=== PATIENT | male | born 1945 | race Caucasian/White ===

== ENCOUNTER → 2019-04-27 | Outpatient (CLI) | payer OTHER, BC | END | disposition home or self-care (01) | LOC: SJCVCIMAG 09:00 | DX: I25.10 Atherosclerotic heart disease of native coronary artery without angina pectoris (principal); J44.9 Chronic obstructive pulmonary disease, unspecified; I71.4 Abdominal aortic aneurysm, without rupture; I10 Essential (primary) hypertension; E78.5 Hyperlipidemia, unspecified; I73.9 Peripheral vascular disease, unspecified; F17.210 Nicotine dependence, cigarettes, uncomplicated; Z82.49 Family history of ischemic heart disease and other diseases of the circulatory system; Z79.82 Long term (current) use of aspirin ==

== ENCOUNTER → 2019-05-24 | Outpatient (CLI) | payer OTHER, BC ==
[~2019-05-24] VITALS: Ht 175.3 cm; Wt 90.7 kg
[~2019-05-24] MED LIST: ACCUPRIL40 MG PO; ASA81BEC PO; CENTRUM ADULTS1 EACH PO; FISH OIL 1,001000 M2 PO; LIPITOR80 MG PO; NORVASC10 MG PO; TOPROL XL50 MG PO; ZETIA10 MG PO
[2019-05-24 10:24] VITALS: BP 142/83
[2019-05-24 10:57] LABS: HEMATOCRIT 44.5 % (42.0-52.0); HEMOGLOBIN 14.7 gm/dL (14.0-18.0); MCH 30.4 pg (26.0-34.0); MCV 92.1 fL (80.0-100.0); RBC 4.83 mil/uL (4.50-6.00); RDW 13.6 % (10.5-14.5); WBC 8.7 thou/uL (4.0-11.0)
--- NOTE | 2019-05-24 15:06 | CATHLAB ---
[facility] [place] [address] INVASIVE PROCEDURE REPORT Name: DYAN LONG Room #: REG LEEANNA Zamora#: [id number] Admission: 05/24/19 Attend Phys: Alexis Mallory MD Discharge: Date of : 45 Report #: [id number] THIS REPORT FOR: cc: FAM - No family physician/PCP FAM - No family physician/PCP Ger Joiner MD [facility] ~ APPROVED REPORT Study performed: 05/24/2019 11:25:30 Patient Details The patient is a 74 year-old male Event Personnel Ger Joiner Supervisor Plastic Sheets, Klever Veliz RN, Alexis De Los Santosub, Matias Mercado RTR Monitor, Nica Cramer Procedures Performed Art Access - R femoral artery* Left Heart Cath w/or w/o Coronaries [id number] [facility] [place] [address] Initial Mod Sed Same Phys/QHP Gr5y 843430 59319 Mod Sed Same Phys/QHP Ea 201610 Hemostasis w/ Mynx Indication Chest pain Procedure Narrative The Right Groin^ was infiltrated with 1% Lidocaine subcutaneous anesthesia. A PINNACLE 6FR Sheath #[id number] sheath was inserted into the RFA^. Coronary angiography was performed using coronary diagnostic catheters. The right coronary system was accessed and visualized with a JR4 catheter. The left coronary system was accessed and visualized with a JL4 catheter. The left ventricle was accessed and visualized with a PIGTAIL catheter. Closure device was deployed with a 7 Fr MYNX CONTROL 6F/7F L#[id number]. The patient tolerated the procedure well and there were no complications associated with the procedure. Intraoperative Conscious Sedation Sedation start time: 1127 Case end Time: 1140 Fentanyl 50 mcg Versed 2 mg Fluoro Time: 13.31 minutes [facility] [place] [address] INVASIVE PROCEDURE REPORT Name: ETHANDYAN H Room #: [facility]#: [id number] Admission: 05/24/19 Attend Phys: Alexis Mallory, Discharge: Date of : 45 Report #: [id number] Dose: DAP 50186.70 cGycm2 412 mGy Contrast Type and Amount: Visipaque 145 ml Hemodynamics The aortic pressure is 143/73 mmHg with a mean of 97 mmHg. The left ventricular pressure is 159/2 mmHg with a mean of mmHg. The left ventricular end diastolic pressure is 10 mmHg. PCI Technique Lesion Percutaneous coronary intervention was performed on the Popliteal. PCI Technique Lesion 2 Percutaneous Coronary Intervention was performed on the Superficial Femoral. Conclusion #1 normal left ventricular size with subtle inferior basilar hypokinesis EF 55% #2 left main mild distal narrowing of 20-30% calcified giving rise to LAD and circumflex #3 LAD is mildly calcified with eccentric 4050% proximal and diffusely diseased distal vessel large diagonal system mildly disease. Significant collateral filling via the collateral from the distal LAD to the PDA off the occluded RCA. #4 circumflex OM also moderately diseased nondominant but moderate distribution also provides some collateral filling to the inferior wall. #5 dominant right coronary artery occluded well collateralized as noted above Recommendations and plan: Continue aggressive risk factor modification no indication for coronary intervention. See Dr. Mallory's dictation regarding peripheral intervention. <ELECTRONICALLY SIGNED> By: Ger Joiner MD, [facility] 05/24/19 1504 1504 1504 Ger Joiner MD, FACC /INF
== END | disposition home or self-care (01) ==
LOC: CATH 09:25
PROVIDERS: Nuclear Medicine Nuclear Cardiology
DX: R07.9 Chest pain, unspecified (principal); I25.10 Atherosclerotic heart disease of native coronary artery without angina pectoris; I70.212 Atherosclerosis of native arteries of extremities with intermittent claudication, left leg; I70.1 Atherosclerosis of renal artery; I10 Essential (primary) hypertension; I72.4 Aneurysm of artery of lower extremity; E78.5 Hyperlipidemia, unspecified; F17.210 Nicotine dependence, cigarettes, uncomplicated; Z82.49 Family history of ischemic heart disease and other diseases of the circulatory system; Z98.890 Other specified postprocedural states; Z85.72 Personal history of non-Hodgkin lymphomas; Z79.82 Long term (current) use of aspirin; Z79.899 Other long term (current) drug therapy

== ENCOUNTER 2019-06-10 22:58 | Inpatient (IN) | payer OTHER, BC ==
[~2019-06-10] VITALS: Ht 175.3 cm; Wt 92.4 kg
[2019-06-10 23:01] VITALS: BP 135/75
[2019-06-10 23:47] LABS: ABSOLUTE NEUTROPHILS 7.8 thou/uL (1.4-8.2); BASOPHILS 0.4 % (0.0-2.0); EOSINOPHILS 1.5 % (0.0-3.0); HEMATOCRIT 42.2 % (42.0-52.0); LYMPHOCYTES 12.8 % (24.0-44.0); MCH 30.2 pg (26.0-34.0); MCHC 33.1 g/dL (28.0-37.0); MCV 91.2 fL (80.0-100.0); MONOCYTES 6.8 % (1.0-8.0); PLATELET COUNT 192 thou/uL (150-400); POLYS 78.5 % (36.0-66.0); RBC 4.63 mil/uL (4.50-6.00); RDW 13.7 % (10.5-14.5); WBC 9.9 thou/uL (4.0-11.0)
[2019-06-10 23:52] LABS: CALCIUM 8.8 mg/dL (8.5-10.1); POTASSIUM 4.5 mmol/L (3.5-5.1)
[2019-06-11] VITALS (22 sets, daily range): BP systolic 112–182; BP diastolic 66–98
[2019-06-11 00:06] LABS: APTT 22.1 Seconds (24.5-32.8); PROTIME 10.3 Seconds (9.3-11.4)
--- NOTE | 2019-06-11 03:34 | NUR ---
PT ARRIVED FROM AIRPORT MANAGER AT 0240; PT ALERT, ORIENTED X4, NEUROLOGICALLY INTACT. MONITOR SINUS RHYTHM IN 70'S. RIGHT GROIN SHEATH IN PLACE WITH INTEGRILIN AT 1 MCG/KG/MIN (7.4 CC/HR) AND tPa AT 25 CC/HR. NS AT 100 CC/HR INFUSING RIGHT LOWER FOREARM. RIGHT GROIN SITE SOFT, NO BLEEDING AT SITE.
[2019-06-11 06:13] LABS: CALCIUM 8.8 mg/dL (8.5-10.1); CREATININE 0.8 mg/dL (0.7-1.3); POTASSIUM 3.3 mmol/L (3.5-5.1)
--- NOTE | 2019-06-11 14:36 | NUR ---
Call placed to [facility] by [facility] Call, charge nurse to notify of change in neuro status and plans for CT scan of head.
--- NOTE | 2019-06-12 02:50 | NUR ---
PATIENT A/O X 4.OFF BEDREST AT 2100.DENIES PAIN AND SOB.RIGHT GROIN SITE C/D/I.PATIENT VERBALIZED HE WANTS TO GO HOME TOMORROW.VOIDED.DENIES NAUSEA.DENIES NUMBNESS ON HIS LOWER EXTREMITIES.MONITOR SHOWS SR.REFUSED MIDNIGHT VITALS.POC CONTINUED.
[2019-06-12 04:42] LABS: HEMATOCRIT 39.6 % (42.0-52.0); HEMOGLOBIN 13.1 gm/dL (14.0-18.0); MCH 30.4 pg (26.0-34.0); MCV 92.2 fL (80.0-100.0); RBC 4.3 mil/uL (4.50-6.00); RDW 13.9 % (10.5-14.5); WBC 8.5 thou/uL (4.0-11.0)
[2019-06-12 04:54] LABS: CALCIUM 8.7 mg/dL (8.5-10.1); CREATININE 0.8 mg/dL (0.7-1.3); POTASSIUM 3.7 mmol/L (3.5-5.1)
[2019-06-12] MEDS ORDERED: CLOPIDOGREL75 MG PO (07:53)
[2019-06-12 09:16] VITALS: BP 134/75
--- NOTE | 2019-06-12 09:47 | EKG ---
[facility] [place] [address] ELECTROCARDIOGRAM REPORT Name: DYAN LONG Room #: 211-P ADM IN M.R.#: [id number] Admission: 06/11/19 Attend Phys: Alexis Mallory MD Discharge: Date of : 45 Report #: [id number] THIS REPORT FOR: cc: FAM - No family physician/PCP FAM - No family physician/PCP Glen Ross MD [facility] THIS REPORT FOR: //name// [facility] ED Test Date: 2019-06-11 Test Time: 00:28:33 Pat Name: DYAN LONG Department: Room: 211 Gender: M Supervisor Multifocal Lens: israel mcguire rn : 1945 Requested By: Ariana Holland Order Number: [id number] MD: Glen Ross Measurements Intervals [place] Rate: 80 P: 13 VA: 188 QRS: -50 QRSD: 91 T: 11 QT: 378 QTc: 436 Interpretive Statements Sinus rhythm Abnormal R-wave progression, early transition Inferior infarct, old Compared to ECG 11/24/2005 08:21:20 Sinus tachycardia no longer present Electronically Signed On 06-12-2019 9:46:33 CDT by Glen Ross [email or web address] <ELECTRONICALLY SIGNED> By: Glen Ross MD, [facility] 06/12/19 0946 0028 0028 Glen Ross MD, [facility] /EPI
--- NOTE | 2019-06-12 09:58 | NUR ---
ASSUMED CARE AT SHIFT CHANGE, ALERT AND ORIENTED. VSS AND SR ON THE MONITOR. DISCHARGE AND MEDICATION INSTRUCTIONS GIVEN TO PATIENT. PATIENT DISCHARGED HOME.
== END 2019-06-12 10:02 | disposition home or self-care (01) | DRG 254 ==
LOC: ER 22:58 → ICU 06-11 02:11 → 2N 06-11 18:35 → ENTRNSPT 06-12 09:40 → 2N 06-12 10:02
PROVIDERS: Emergency Medicine Emergency Medical Services; ADMIT Nuclear Medicine Nuclear Cardiology
PROC: 047J3ZZ Dilation of Left External Iliac Artery, Percutaneous Approach (ICD-10-PCS; principal; 2019-06-11)
PROC: 3E05317 Introduction of Other Thrombolytic into Peripheral Artery, Percutaneous Approach (ICD-10-PCS; principal; 2019-06-11)
PROC: B4181ZZ Fluoroscopy of Bilateral Renal Arteries using Low Osmolar Contrast (ICD-10-PCS; principal; 2019-06-11)
DX: I70.212 Atherosclerosis of native arteries of extremities with intermittent claudication, left leg (principal); I72.4 Aneurysm of artery of lower extremity; I71.4 Abdominal aortic aneurysm, without rupture; I25.10 Atherosclerotic heart disease of native coronary artery without angina pectoris; I10 Essential (primary) hypertension; E78.00 Pure hypercholesterolemia, unspecified; J44.9 Chronic obstructive pulmonary disease, unspecified; F17.210 Nicotine dependence, cigarettes, uncomplicated; F41.9 Anxiety disorder, unspecified; Z95.820 Peripheral vascular angioplasty status with implants and grafts; Z85.72 Personal history of non-Hodgkin lymphomas; Z95.5 Presence of coronary angioplasty implant and graft; Z79.82 Long term (current) use of aspirin; Z79.899 Other long term (current) drug therapy
CPT/HCPCS: 10081

== ENCOUNTER 2019-07-13 08:32 | Inpatient (IN) | payer OTHER, BC ==
[2019-07-13] VITALS (11 sets, daily range): BP systolic 130–169; BP diastolic 74–97
[~2019-07-13] VITALS: Ht 175.3 cm; Wt 89.8 kg
--- NOTE | ~2019-07-13 | D ---
[facility] [place] [address] DISCHARGE SUMMARY Name: DYAN LONG Room #: 248-P [facility] IN M.R.#: [id number] Admission: 07/13/19 Attend Phys: Ger Joiner MD, Discharge: Date of : 45 Report #: [id number] THIS REPORT FOR: cc: NEO - Mer family physician/PCP NEO - No family physician/PCP ~ THIS REPORT FOR: //name// CC: Alexis Mallory [facility] physician/PCP Ger Joiner [facility] COURSE: A 74-year-old male who unfortunately presented again with a recurrent left lower extremity cold lower extremity. Pulseless and painful, blanched. Subsequently taken to prior intervention by Dr. Mallory. The patient continued to smoke and missed a couple of doses of his Plavix. Taken subsequently to the catheter interventional lab by Dr. Mallory. He placed lytic therapy overnight in an intra-arterial drip. This was TPA. Subsequently, came back for revision. It was warm the following day with predominant resolved most of the clot. He subsequently dilated the SFA down to the popliteal in the left lower extremity and placed a covered stent graft with brisk distal flow. This was a Viabahn stent graft, which extended from the mid SFA distally. The patient tolerated well. He is voicing no complaints of any leg discomfort. It is fairly normal exam. His creatinine is 0.9. His potassium is 3.8 today. His H and H are 13.9 and 41.5. He will be discharged to home on Plavix 75 mg a day, Xarelto 20 mg q. day, so we will use anticoagulant and antiplatelet therapy. Smoking cessation is strongly recommended, although this is a common recurrent problem. His other discharge medicines will be Zetia generically 10 mg, atorvastatin 80, amlodipine 10, metoprolol 50. Pepcid p.r.n. and his pain medications, lisinopril 20 mg q. day. No lifting for 48 hours. No lying in tub, Jacuzzi or osei for a week. Resume regular aerobic activity. DISCHARGE DIAGNOSES: 1. Acute arterial occlusion of the left lower extremity with subsequent lytic therapy and revision as stated above. 2. Coronary artery disease. Recent cardiac catheterization reveals moderate left main, left anterior descending and circumflex disease with an occluded right, which is collateralized. 3. Mild ischemic cardiomyopathy. 4. Hypertension. 5. Hypercholesterolemia. 6. Chronic obstructive pulmonary disease, continued tobacco use. 7. Degenerative joint disease. Followup is arranged with repeat ultrasounds of the lower extremity and myself, Dr. Mallory in 2 [place] [address] DISCHARGE SUMMARY Name: DYAN LONG Room #: 248-P [facility]#: [id number] Admission: 07/13/19 Attend Phys: Ger Joiner MD, Discharge: Date of : 45 Report #: [id number] Thank you for asking me to assist in the care of this patient. By: 1045 1138 /nt
[~2019-07-13 08:32] MED LIST changes: +CLOPIDOGREL75 MG PO
[2019-07-13 09:39] LABS: ABSOLUTE NEUTROPHILS 5.4 thou/uL (1.4-8.2); BASOPHILS 0.3 % (0.0-2.0); EOSINOPHILS 2.2 % (0.0-3.0); HEMATOCRIT 43.7 % (42.0-52.0); HEMOGLOBIN 14.6 gm/dL (14.0-18.0); LYMPHOCYTES 20.2 % (24.0-44.0); MCH 30.6 pg (26.0-34.0); MCHC 33.4 g/dL (28.0-37.0); MCV 91.6 fL (80.0-100.0); MONOCYTES 10.5 % (1.0-8.0); PLATELET COUNT 138 thou/uL (150-400); POLYS 66.8 % (36.0-66.0); RBC 4.77 mil/uL (4.50-6.00); RDW 14.6 % (10.5-14.5); WBC 8.1 thou/uL (4.0-11.0)
[2019-07-13 09:56] LABS: CALCIUM 8.8 mg/dL (8.5-10.1); CREATININE 0.9 mg/dL (0.7-1.3); POTASSIUM 3.4 mmol/L (3.5-5.1)
--- NOTE | 2019-07-13 15:06 | EKG ---
[facility] [place] [place] [address] ELECTROCARDIOGRAM REPORT Name: DYAN LONG Room #: 170-8 ADM IN M.R.#: [id number] Admission: 07/13/19 Attend Phys: Ger Joiner MD, Discharge: Date of : 45 Report #: [id number] THIS REPORT FOR: cc: NEO - No family physician/PCP FAM - No family physician/PCP Morro Cordova MD ~ THIS REPORT FOR: //name// [facility] ED Test Date: 2019-07-13 Test Time: 13:29:15 Pat Name: DYAN LONG Department: Room: 170 8 Gender: M Makeup Editor[facility] 1945 Requested By: Olinda Falcon Order Number: [id number] MD: Morro Cordova Measurements Intervals [place] Rate: 75 P: 22 RI: 179 QRS: -45 QRSD: 102 T: 6 QT: 407 QTc: 455 Interpretive Statements Sinus rhythm Compared to ECG 06/11/2019 00:28:33 Right ventricular hypertrophy now present Electronically Signed On 07-13-2019 15:04:55 CDT by Morro Cordova [email or web address] <ELECTRONICALLY SIGNED> By: Morro Cordova MD 07/13/19 1504 1329 1329 Morro Cordova MD /EPI
--- NOTE | 2019-07-13 20:07 | NUR ---
PATIENT ARRIVED TO UNIT VIA STRETCHER, TRANSPORTED BY WAITSTAFF CAPTAIN. PATIENT TPA & INTEGRILIN INFUSING INTO RIGHT GROIN SITES X2. SITES HAD MODERATE AMOUNT OF FRESH RED DRAINAGE AND LOOSE DRESSING. INFORMED BY IR NURSE THAT OOZING SHOULD BE EXPECTED AND MAY NEED TO CONTINUE TO CHANGE GROIN SITE DRESSINGS. ASSESSMENT COMPLETE AND INTERVENTIONS IN PLACE TO ASSESS PATIENT EXTREMITIES AND PROCEDURE SITE. DRESSING CHANGE COMPLETED, PROVIDER PAGED AND NOTIFIED OF OOZING SITE AND THAT PATIENT HAD NOT TAKEN BLOOD PRESSURE MEDICATION TODAY. REPORTED TO PHYSICIAN THAT PATIENT HAD A COUPLE SBP READINGS >170. REPORTS PAIN 2/10 ON NUMERIC SCALE. DISCUSSED WITH PATIENT NEED FOR STRICT BEDREST AND IMPORTANCE OF IMMOBILIZATION. PATIENT NEEDS REMINDERS TO PREVENT CROSSING LEGS OVER EACH OTHER AND BENDS KNEE FREQUENTLY. PATIENT CONSUMED 90% OF HEART HEALTHY DIET. VOIDS PER URINAL. EDUCATED ON NPO STATUS AFTER MIDNIGHT FOR FOLLOW UP TOMORROW. CALL LIGHT IN REACH, FALL PRECAUTIONS IN PLACE.
[2019-07-14] VITALS (23 sets, daily range): BP systolic 113–161; BP diastolic 66–116
--- NOTE | 2019-07-14 05:10 | NUR ---
ASSUMED PT CARE AT 1900. VSS PT A&OX4. NEW DRESSING ON R GROIN PLACED BY DAY RN. DRESSING IS CURRENTLY MODERATELY SATURATED WITH LIGHT PINK DRAINAGE. IT APPEARS SITE STOPPED OOZING AROUND MIDNIGHT. PT IS STABLE, DIDNT GET ENOUGH SLEEP LAST NOC D/T HOSPITAL ENVRONMENT. PT ASKED ME TO DISPOSE HIS OPEN PACK OF CIGARRETES AND TOBACO TIN THIS AM; HE PROMISED NOT TO INDULGE AGAIN. STATED HE DID NOT WANT TO HAVE TO "GO THROUGH THIS AGAIN". PT IS CURRENTLY STABLE. PT IS PROGRESSING WELL TOWARDS POC GOALS.
[2019-07-14 05:17] LABS: HEMATOCRIT 41.5 % (42.0-52.0); HEMOGLOBIN 13.7 gm/dL (14.0-18.0); MCH 30.4 pg (26.0-34.0); MCHC 32.9 g/dL (28.0-37.0); MCV 92.4 fL (80.0-100.0); RBC 4.49 mil/uL (4.50-6.00); RDW 14.4 % (10.5-14.5); WBC 9.1 thou/uL (4.0-11.0)
[2019-07-14 08:21] LABS: CALCIUM 8.3 mg/dL (8.5-10.1); CREATININE 0.8 mg/dL (0.7-1.3); POTASSIUM 3.2 mmol/L (3.5-5.1)
[2019-07-14] MEDS ORDERED: XARELTO20 MG PO (09:08)
--- NOTE | 2019-07-14 11:38 | NUR ---
chart review. cm tried call pt by phone x 2 this am with no answer. cm spoke with charge nurse reported he on his way to IR for procedure. cm visited with daughter leroy via phone call, offered support during times cant visit family and friend in hospital, dad will call be when he needs picked up. i got his doggie with us and hope out soon or dads going to give you all a fit maybe, he his ready to come home. he talked with my brother on phone call earlier today. lives in house alone, 6 step to main level, then 6 to basement. he independent. no dme or rehab in past."/daughter leroy. will cont following as needed for dc needs. no anticipated needs.
--- NOTE | 2019-07-14 11:41 | NUR ---
TO INTERVENTIAL RADIOLOGY FOR LEFT SAPHANOUS ARTERY STENT STATUS PER BED, WITH MONITOR AND IV INTREGRELIN AND TPA TO RT GROIN STHEATHES, FEET ARE WARM TO TOUCH WITH CAP REFILL LESS THAN 3 SECONDS.
--- NOTE | 2019-07-14 15:54 | NUR ---
RETURNED TO ROOM FROM IR AT 1335, RT GROIN DRESSING IS C/D/I. STENT X2 TO LEFT SFA. WILL CONTINUE TO MONITOR.
--- NOTE | 2019-07-14 19:34 | NUR ---
PATIENT PROGRESSING TOWARDS OUTCOME GOALS BRUISING NOTED AT RT GROIN SITE. TOLERATING DIET WITHOUT NAUSEA OR EMESIS. VSS MONITOR NSR. VOIDING CLEAR KATYA URINE PER URINAL. O2 TITRATED TO KEEP O2 SAT GREATER THAN 90%, DECEASES WITH SLEEP. PATIENT UPDATED TO THE POC AND REASSURANCE GIVEN.
--- NOTE | 2019-07-14 20:00 | NUR ---
Care assumed at 1900. Pt has multiple small c/o -- bed uncomfortable, BP cuff too tight, etc. IV fluids discontinued as pt has good oral intake. Assessment of right groin site done with day shift nurse; site bruised, soft, slightly swollen but unchanged according to day shift nurse. Pt up to chair at 1930; tolerated activity well. No change in groin site.
[2019-07-15 01:45] VITALS: BP 133/82
[2019-07-15 04:08] LABS: HEMATOCRIT 41.5 % (42.0-52.0); HEMOGLOBIN 13.9 gm/dL (14.0-18.0); MCH 30.8 pg (26.0-34.0); MCHC 33.5 g/dL (28.0-37.0); MCV 92.2 fL (80.0-100.0); RBC 4.5 mil/uL (4.50-6.00); RDW 14.5 % (10.5-14.5)
[2019-07-15 04:13] LABS: CALCIUM 8.5 mg/dL (8.5-10.1); CREATININE 0.9 mg/dL (0.7-1.3); POTASSIUM 3.8 mmol/L (3.5-5.1)
--- NOTE | 2019-07-15 07:46 | NUR ---
ASSUMED CARE OF PT AT 2300. PT ALERT AND ORIENTED. IRRITATED THROUGH OUT THE NIGHT BECAUSE OF INTERRUPTIONS IN HIS SLEEP. PT VERBALIZES THAT HE WANTS TO BE DISCHARGED.
[2019-07-15 09:25] VITALS: BP 148/68
[2019-07-15 10:46] VITALS: BP 148/68
--- NOTE | 2019-07-15 13:26 | NUR ---
ASSUMED CARE AT 0700, ASSESSMENT AND VITAL SIGNS COMPLETED PER ICU PROTOCOL. DR. ROSENBAUM ROUNDED THIS AM, NO NEW ORDERS RECEIVED. DR. MARROQUIN ROUNDED THIS AM, DISCHARGE ORDERS RECEIVED. DISCHARGE EDUCATION GIVEN, PT TRANSPORTED TO ER EXIT VIA WHEELCHAIR WITH THE ASSIST OF TWO RN'S. PT'S DAUGHTER PRESENT AT ER ENTRANCE TO ASSUME CARE AND TAKE PT HOME. NO COMPLICATIONS NOTED DURING THIS PROCESS.
== END 2019-07-15 11:55 | disposition home or self-care (01) | DRG 272 ==
LOC: ER 08:32 → EROBS 11:27 → ICU 11:27
PROVIDERS: Emergency Medicine; Nuclear Medicine Nuclear Cardiology; Nurse Practitioner; ADMIT Internal Medicine Cardiovascular Disease
PROC: B4181ZZ Fluoroscopy of Bilateral Renal Arteries using Low Osmolar Contrast (ICD-10-PCS; principal; 2019-07-13)
PROC: B41D1ZZ Fluoroscopy of Aorta and Bilateral Lower Extremity Arteries using Low Osmolar Contrast (ICD-10-PCS; principal; 2019-07-13)
PROC: 04VL3DZ Restriction of Left Femoral Artery with Intraluminal Device, Percutaneous Approach (ICD-10-PCS; principal; 2019-07-13)
PROC: 6A751Z6 Ultrasound Therapy of Peripheral Vessels, Multiple (ICD-10-PCS; principal; 2019-07-13)
PROC: 3E05317 Introduction of Other Thrombolytic into Peripheral Artery, Percutaneous Approach (ICD-10-PCS; principal; 2019-07-13)
PROC: B41GYZZ Fluoroscopy of Left Lower Extremity Arteries using Other Contrast (ICD-10-PCS; principal; 2019-07-13)
DX: I74.3 Embolism and thrombosis of arteries of the lower extremities (principal); I25.10 Atherosclerotic heart disease of native coronary artery without angina pectoris; I10 Essential (primary) hypertension; E78.00 Pure hypercholesterolemia, unspecified; F17.210 Nicotine dependence, cigarettes, uncomplicated; I71.4 Abdominal aortic aneurysm, without rupture; I25.5 Ischemic cardiomyopathy; J44.9 Chronic obstructive pulmonary disease, unspecified; M19.90 Unspecified osteoarthritis, unspecified site; Z95.5 Presence of coronary angioplasty implant and graft; Z95.820 Peripheral vascular angioplasty status with implants and grafts; Z85.72 Personal history of non-Hodgkin lymphomas; Z79.82 Long term (current) use of aspirin; Z79.899 Other long term (current) drug therapy
CPT/HCPCS: 10078; 10203

== ENCOUNTER → 2019-09-18 | Outpatient (CLI) | payer OTHER, BC ==
[~2019-09-18] MED LIST changes: +XARELTO20 MG PO
== END ==
LOC: SJCVCIMAG 12:53
PROVIDERS: ATTEND Nuclear Medicine Nuclear Cardiology
DX: I65.23 Occlusion and stenosis of bilateral carotid arteries (principal); I70.203 Unspecified atherosclerosis of native arteries of extremities, bilateral legs; I25.10 Atherosclerotic heart disease of native coronary artery without angina pectoris; I71.4 Abdominal aortic aneurysm, without rupture; I10 Essential (primary) hypertension; J44.9 Chronic obstructive pulmonary disease, unspecified; E78.5 Hyperlipidemia, unspecified; F17.210 Nicotine dependence, cigarettes, uncomplicated; Z82.49 Family history of ischemic heart disease and other diseases of the circulatory system; Z95.820 Peripheral vascular angioplasty status with implants and grafts; Z79.899 Other long term (current) drug therapy

== ENCOUNTER → 2019-12-19 | Outpatient (CLI) | payer OTHER, BC | LOC: SJCVCIMAG 11:48 | PROVIDERS: ATTEND Internal Medicine Cardiovascular Disease | DX: I70.203 Unspecified atherosclerosis of native arteries of extremities, bilateral legs (principal); R94.31 Abnormal electrocardiogram [ECG] [EKG]; I25.10 Atherosclerotic heart disease of native coronary artery without angina pectoris; I71.4 Abdominal aortic aneurysm, without rupture; I10 Essential (primary) hypertension; E78.00 Pure hypercholesterolemia, unspecified; J44.9 Chronic obstructive pulmonary disease, unspecified; Z72.0 Tobacco use; Z79.899 Other long term (current) drug therapy ==

== ENCOUNTER → 2020-04-30 | Outpatient (CLI) | payer OTHER, BC | LOC: SJCVCIMAG 08:10 | PROVIDERS: ATTEND Internal Medicine Cardiovascular Disease | DX: I70.202 Unspecified atherosclerosis of native arteries of extremities, left leg (principal); Z72.0 Tobacco use; Z95.828 Presence of other vascular implants and grafts; Z79.899 Other long term (current) drug therapy ==

== ENCOUNTER → 2020-05-21 | Outpatient (CLI) | payer OTHER, BC | LOC: SJCVC 13:27 | PROVIDERS: ATTEND Nuclear Medicine Nuclear Cardiology | DX: R94.31 Abnormal electrocardiogram [ECG] [EKG] (principal); J44.9 Chronic obstructive pulmonary disease, unspecified; I10 Essential (primary) hypertension; I25.10 Atherosclerotic heart disease of native coronary artery without angina pectoris; E78.00 Pure hypercholesterolemia, unspecified; E78.5 Hyperlipidemia, unspecified; I77.9 Disorder of arteries and arterioles, unspecified; I71.4 Abdominal aortic aneurysm, without rupture; I73.9 Peripheral vascular disease, unspecified; Z72.89 Other problems related to lifestyle; Z79.899 Other long term (current) drug therapy; Z72.0 Tobacco use; Z82.49 Family history of ischemic heart disease and other diseases of the circulatory system ==

== ENCOUNTER → 2020-11-05 | Outpatient (CLI) | payer OTHER, BC | LOC: SJCVCIMAG 08:00 | PROVIDERS: ATTEND Internal Medicine Cardiovascular Disease | DX: I65.23 Occlusion and stenosis of bilateral carotid arteries (principal); I70.203 Unspecified atherosclerosis of native arteries of extremities, bilateral legs; I77.9 Disorder of arteries and arterioles, unspecified; Z72.0 Tobacco use ==

== ENCOUNTER → 2020-11-12 | Outpatient (CLI) | payer OTHER, BC | LOC: SJCVC 13:17 | PROVIDERS: ATTEND Internal Medicine Cardiovascular Disease | DX: R94.31 Abnormal electrocardiogram [ECG] [EKG] (principal); I45.2 Bifascicular block; I73.9 Peripheral vascular disease, unspecified; I77.9 Disorder of arteries and arterioles, unspecified; I25.10 Atherosclerotic heart disease of native coronary artery without angina pectoris; I71.4 Abdominal aortic aneurysm, without rupture; I10 Essential (primary) hypertension; J44.9 Chronic obstructive pulmonary disease, unspecified; E78.5 Hyperlipidemia, unspecified; Z72.0 Tobacco use; Z79.899 Other long term (current) drug therapy ==

== ENCOUNTER → 2020-11-18 | Outpatient (CLI) | payer OTHER, BC ==
[~2020-11-18] VITALS: Ht 175.3 cm; Wt 92.1 kg
[2020-11-18 08:26] VITALS: BP 127/78
[2020-11-18 09:14] LABS: HEMATOCRIT 38.5 % (42.0-52.0); HEMOGLOBIN 12.3 gm/dL (14.0-18.0); MCH 26.4 pg (26.0-34.0); MCV 82.4 fL (80.0-100.0); RBC 4.67 mil/uL (4.50-6.00)
[2020-11-18 09:26] LABS: CALCIUM 8.9 mg/dL (8.5-10.1); CREATININE 1.1 mg/dL (0.7-1.3); POTASSIUM 3.5 mmol/L (3.5-5.1)
--- NOTE | 2020-11-18 13:07 | EKG ---
[address] [place] [address] ELECTROCARDIOGRAM REPORT Name: DYAN LONG [id number] Admission: Attend Phys: Alexis Mallory MD Discharge: Date of : 45 Report #: [id number] [facility] Test Date: 2020-11-18 Test Time: 08:20:07 Pat Name: DYAN LONG Department: Room: Gender: Warehouse Sorter: MARTIN : 1945 Requested By: Alexis Mallory Order Number: [id number] MD: Rios Engel Measurements Intervals [place] Rate: 78 P: 4 MT: 182 QRS: -46 QRSD: 101 T: 0 QT: 397 QTc: 453 Interpretive Statements Sinus rhythm Early transition Left axis deviation Nonspecific ST-T wave change compared to ECG 07/13/2019 13:29:15 Myocardial infarct finding now present Electronically Signed On 11-18-2020 13:07:26 CDT by Rios Engel [email or web address] <ELECTRONICALLY SIGNED> By: Rios Engel MD 11/18/20 1307 08 9 Rios Engel MD /RAMYA
--- NOTE | 2020-11-18 13:23 | NUR ---
PT OUT FROM PROCEDURE, VERY AGITATED. DOES NOT UNDERSTAND WHY HE HAS TO EAT LAYING DOWN AND SAYS HE WILL CHOKE. PULLING OFF HIS BP CUFF AND YELLING THAT THIS WILL NOT CONTINUE. WE HAVE GOTTEN PLENTY BP'S ON HIM AND WE DON'T NEED TO GET ANYMORE. PT REQUESTING COFFEE AND FRESH COFFEE GIVEN TO PT. INFORMED PT THAT THE COFFEE WAS HOT AND IT NEEDED TO COOL OFF BEFORE HE TOOK A SIP. HE SAID HE WILL MARIUM US IF IT RICKETTS HIM. I OFFERED TO PUT SOME ICE CHIPS IN IT AND HE REFUSED. PT VERBALIZED THAT HE WILL CONTINUE TO ACT LIKE THIS UNTIL HE HAS TO LEAVE. I ASKED HIM TO NOT YELL BECAUSE WE HAVE OTHER PTS WE ARE TAKING CARE OF AND HE SAID THAT IS TOO BAD FOR THEM. PT CONTINUES TO GRUNT AND YELL OUT EVEN AFTER I LEAVE THE ROOM. WILL CONTINUE TO REASSURE PT THAT WE ARE DOING EVERYTHING TO KEEP HIM FROM BLEEDING AND ANY FURTER COMPLICATIONS FROM HAPPENING.
--- NOTE | 2020-11-18 17:00 | CATHLAB ---
[facility] [place] [address] INVASIVE PROCEDURE REPORT Name: DYAN LONG Room #: PRE LEEANNA ZamoraEddie#: [id number] Admission: Attend Phys: Alexis Mallory MD Discharge: Date of : 45 Report #: [id number] THIS REPORT FOR: cc: FAM - No family physician/PCP FAM - No family physician/PCP Ger Joiner MD [facility] ~ APPROVED REPORT Study performed: 11/18/2020 11:16:41 Patient Details Patient Status: Out-Patient Room #: The patient is a 75 year-old male Event Personnel Ger Joiner Director Automotive, Tracey Guaman RT(R)() Shoaib Baker Roberta Monitor, Duglas Quezada RN kaiako kohanga reo Performed Left Heart Cath w/or w/o Coronaries [id number] [facility] [address] Initial Mod Sed Same Phys/QHP Gr5y 277077 Hemostasis w/ Mynx Indication Chest pain Procedure Narrative A 7F 11CM BRITE-TIP sheath was inserted into the lfa. Coronary angiography was performed using coronary diagnostic catheters. The right coronary system was accessed and visualized with a JR4 catheter. The left coronary system was accessed and visualized with a JL4 catheter. The left ventricle was accessed and visualized with a STR PIG catheter. Hemostasis was obtained with manual pressure following sheath removal without any complications. There was no hematoma. Intraoperative Conscious Sedation Sedation start time: 1220 Case end Time: 1245 Fentanyl 50 mcg Versed 0.5 mg Fluoro Time: 17.83 minutes Dose: DAP 044807.20 cGycm2 259 mGy Contrast Type and Amount: Visipaque 129 ml [facility] [address] [place] [address] INVASIVE PROCEDURE REPORT Name: DYAN LONG [facility] [id number] Admission: Attend Phys: Alexis Mallory, Discharge: Date of : 45 Report #: [id number] Hemodynamics The left ventricular pressure is 156/14 mmHg with a mean of mmHg. The left ventricular end diastolic pressure is 16 mmHg. PCI Technique Lesion 2 Percutaneous Coronary Intervention was performed on the Superficial Femoral. Conclusion #1 Normal left ventricular size and systolic function EF 60% #2 left main mild distal tapered narrowing of the left main 20 to 30% giving rise to LAD and circumflex. #3 LAD is mildly diseased to the apex. Appears to be a collateral filling from a diagonal or LAD to a PDA of the occluded RCA. #4 circumflex OM nondominant there is an eccentric 70% ostial first OM lesion with a well-preserved distal vessel and then a circumflex in the AV groove with mild disease. Again collateral filling to the PDA from the left system is noted. #5 dominant right is occluded proximally there is a distally placed stents which are obviously occluded. The PDA is filled via the left system. Recommendations and plan: Continue aggressive risk factor modification. There is no indication for coronary intervention. There is minimal progression since last catheterization in early 2019. The RCA PDA is well collateralized and occluded previously noted. LV function is preserved. <ELECTRONICALLY SIGNED> By: Ger Joiner MD, FACC 11/18/201658 58 58 Ger Joiner MD, FACC /INF
== END | disposition home or self-care (01) ==
LOC: CATH 12:12
PROVIDERS: ATTEND Nuclear Medicine Nuclear Cardiology
DX: R07.9 Chest pain, unspecified (principal); I25.10 Atherosclerotic heart disease of native coronary artery without angina pectoris; I70.211 Atherosclerosis of native arteries of extremities with intermittent claudication, right leg; I70.1 Atherosclerosis of renal artery; I10 Essential (primary) hypertension; E78.5 Hyperlipidemia, unspecified; J44.9 Chronic obstructive pulmonary disease, unspecified; Z98.890 Other specified postprocedural states; Z79.899 Other long term (current) drug therapy; Z87.891 Personal history of nicotine dependence

== ENCOUNTER → 2021-02-26 | Outpatient (CLI) | payer OTHER, BC | LOC: SJCVCIMAG 08:14 | PROVIDERS: ATTEND Nuclear Medicine Nuclear Cardiology | DX: I70.202 Unspecified atherosclerosis of native arteries of extremities, left leg (principal) ==